=== PATIENT | female | born 1965 | race Two or more races ===

== ENCOUNTER 2016-03-31 20:42 | Emergency (ER) | payer OTHER ==
[~2016-03-31] VITALS: Ht 154.9 cm; Wt 49.9 kg
[2016-03-31 22:03] VITALS: BP 113/63
[2016-03-31] MEDS ORDERED: KETOROLAC TROMETHAMINE INJ 60 MG/2 ML VIAL IM ONE ×2 (22:50→23:00)
== END 2016-03-31 22:58 | disposition home or self-care (01) ==
LOC: ER 20:48
DX: M19.90 Unspecified osteoarthritis, unspecified site (principal)
CPT/HCPCS: 96372; 99283; A4606; J1885; Z7610